=== PATIENT | male | born 1945 | race Hispanic/Latino ===

== ENCOUNTER 2018-03-23 07:37 | Outpatient (CLI) | payer MEDICARE ==
--- NOTE | 2018-03-23 09:54 | MRI ---
MRI LUMBAR SPINE WITHOUT CONTRAST: Date: 03-23-18 Comparison: 03-08-16 History: Back locked up three weeks ago. Pain with bilateral lower extremity radiculopathy. Technique: Multiplanar, multisequence MR imaging of the lumbar spine provided without contrast. FINDINGS: The sagittal STIR imaging demonstrates no focal area of osseous marrow edema. Assuming five lumbar ty pe vertebral bodies, conus medullaris terminates at the T12-L1 level. There is no anterolisthesis or retrolisthesis seen within the lumbar spine. T12-L1: Mild bilateral facet hypertrophy. Intervertebral disc height and signal intensity within norm al limits with no significant central canal or neural foraminal stenosis. L1-2: Mild bilateral facet hypertrophy. Mild anterior osteophyte formation. No significant central ca nal or neural foraminal stenosis. L2-3: Intervertebral disc height and signal intensity within normal limits. Mild bilateral facet hype rtrophy with no significant central canal or neural foraminal stenosis. L3-4: Bilateral facet hypertrophy. No significant central canal stenosis. There is mild left neural f oraminal stenosis. No significant right neural foraminal stenosis. L4-5: Bilateral facet hypertrophy. Mild disc bulge. Bilateral facet hypertrophy is present. There is no significant central canal stenosis. Moderate/severe bilateral neural foraminal stenosis noted, rig ht greater than left. L5-S1: There is disc space narrowing and disc desiccation with vacuum disc formation and mild disc bu lge. Small superimposed central disc protrusion. No significant central canal stenosis. Mild right an d moderate left neural foraminal stenosis. Imaged retroperitoneal structures are grossly unremarkable. When compared to the prior examination, n eural foraminal stenosis has not significantly changed. IMPRESSION: Relatively stable degenerative changes, including bilateral neural foraminal stenosis at L4-5 and L5- S1. POS: [facility]
== END 2018-03-23 07:38 | disposition home or self-care (01) ==
LOC: TBSIIMAG 07:37
PROVIDERS: ATTEND Family Medicine
DX: M47.26 Other spondylosis with radiculopathy, lumbar region (principal); M99.83 Other biomechanical lesions of lumbar region; M99.84 Other biomechanical lesions of sacral region
CPT/HCPCS: 72148

== ENCOUNTER 2018-03-27 08:50 | Outpatient (CLI) | payer MEDICARE ==
[2018-03-27] MEDS ORDERED: Gadobenate Dimeglumine 529 MG/1 ML (20ML VIAL) ONE (10:02)
--- NOTE | 2018-03-27 13:18 | MRI ---
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 TECHNIQUE: multisequence MRI of the thoracic spine obtained in sagittal and axial planes, pre and post IV inject ion of 17 mL of MultiHance Gadolinium-based contrast agent. COMPARISON: none FINDINGS: There is no intramedullary signal abnormality (no cord edema or myelomalacia), and no intramedullary neoplastic mass or other abnormal enhancement. No syringohydromyelia. No extrinsic impingement on t he thoracic spinal cord. Thoracic spinal cord size is normal. No extramedullary-intradural, extradu ral, or perivertebral space mass or abnormal enhancement. There is a mild lateral curvature of the T-spine. There are discogenic degenerative changes, asymmet rically on the left side, at T8-T9, with disk space narrowing and modic type I endplate marrow edema. Otherwise, there is no major bone marrow signal abnormality elsewhere. The vertebral body heights are maintained. No high grade central spinal canal stenosis, high grade neural foraminal stenosis, o r nerve root impingement, at any level. IMPRESSION: 1. No abnormality of the thoracic spinal cord. 2. Asymmetrical left-sided discogenic degenerative changes at T8-T9. 3. Mild lateral curvature. POS: [facility]
--- NOTE | 2018-03-27 13:19 | MRI ---
MRI OF CERVICAL SPINE WITH AND WITHOUT CONTRAST: Multiplanar, multisequential imaging cervical spine obtained. Postcontrast images obtained with admi nistration of 17 cc MultiHance IV. INDICATION: Transverse myelitis. COMPARISON: Comparison is made to MRI of the cervical spine dated 03/08/16. FINDINGS: The cervical vertebrae maintain normal height and alignment. There are mild degenerative changes pre sent. Mild loss of disk space at C6-7. Posterior spondylosis at C3-4, C4-5, C5-6, and C6-7. No dis k protrusion or significant disk bulge. High signal in the left facet joint at C5-6 is noted and the re is mild enhancement at this site. This may represent mild inflammatory change. Edema at this lev el was also described on the prior exam. No other abnormal enhancement. The cervical cord is unrema rkable and exhibits normal signal. No evidence of myelopathy. IMPRESSION: Mild spondylosis in the midcervical spine appears stable from the exam of 2016. Mild edema and enhan cement in the left facet at C5-6 is noted as described above. POS: [facility]
--- NOTE | 2018-03-27 14:03 | MRI ---
MRI LUMBAR SPINE WITH AND WITHOUT CONTRAST: Multiplanar, multisequential imaging lumbar spine obtained. Postcontrast images obtained with admini stration of 17 cc MultiHance IV. INDICATION: Transverse myelitis. COMPARISON: MRI lumbar spine 03/08/16. FINDINGS: Lumbar vertebrae maintain normal height and alignment. Loss of disk space at L5-S1 with mild degener ative disk end plate changes at L5-S1 appears stable from 2016. Mild diffuse disk bulge seen at L3-4 more pronounced to the left with facet hypertrophy resulting in mild central canal stenosis. At L4-5, broad-based disk bulge flattens the thecal sac associated with facet hypertrophy resulting i n mild central canal stenosis. There is right foraminal stenosis at this level due to asymmetric dis k-osteophyte complex projecting to the right and impinging on the exiting right L4 nerve root. Mild central canal stenosis, unchanged from the prior exam. At L5-S1, broad-based bulge. Mild bilateral foraminal stenosis due to diffuse disk bulge and facet h ypertrophy, stable from prior exam. The conus is normally positioned and the lower cord and conus show normal signal with no evidence of myelopathy. There is no abnormal enhancement. IMPRESSION: Disk bulge at L3-4, L4-5, and L5-S1 as described above. The visualized spinal cord and conus appear unremarkable. POS: [facility]
== END 2018-03-27 08:51 | disposition home or self-care (01) ==
LOC: MRI 08:50
PROVIDERS: ATTEND Family Medicine
DX: G37.3 Acute transverse myelitis in demyelinating disease of central nervous system (principal); M51.37 Other intervertebral disc degeneration, lumbosacral region; M47.892 Other spondylosis, cervical region; M47.894 Other spondylosis, thoracic region; M43.9 Deforming dorsopathy, unspecified
CPT/HCPCS: 72156; 72157; 72158; A9579

== ENCOUNTER 2019-08-13 14:11 | Outpatient (CLI) | payer MEDICARE ==
--- NOTE | 2019-08-13 15:32 | ULT ---
FOCUSED ULTRASOUND OF THE LEFT BREAST 08/13/19 HISTORY: Pain and sensitivity in the retroareolar region on the left. FINDINGS: Mammographic assessment demonstrates findings consistent with gynecomastia. Sonographic assessment al so demonstrates evidence of gynecomastia, with hypoechoic soft tissue abutting the posterior aspect o f the nipple. There is no mass lesion or abnormal shadowing. IMPRESSION: BIRADS 2: Benign Finding(s) Routine annual screening mammography (for women over age 40). Sonographic evidence of gynecomastia. POS: [facility]
--- NOTE | 2019-08-13 16:14 | MMO ---
Bilateral MAMMO Bilat Diag [facility]. CLINICAL HISTORY: Patient is 74 years old and is seen for diagnostic exam. The patient has the following family history of breast cancer: maternal aunt. The patient has no personal history of cancer. VIEWS: The views performed were: bilateral craniocaudal with tomosynthesis; bilateral mediolateral oblique with tomosynthesis; and bilateral mediolateral with tomosynthesis. FILMS COMPARED: The present examination has been compared to a prior imaging study performed at [facility] on 08/13/2019. This study has been interpreted with the assistance of computer-aided detection. MAMMOGRAM FINDINGS: There are scattered fibroglandular densities. There are focal asymmetries seen in the sub-areolar region of both breasts. Bilateral gynecomastia noted, left greater than right. There are no suspicious masses, suspicious calcifications, or new areas of architectural distortion. IMPRESSION: THERE IS NO MAMMOGRAPHIC EVIDENCE OF MALIGNANCY. THE RESULTS OF THIS EXAM WERE SENT TO THE PATIENT. ACR BI-RADS Category 2 - Benign finding MAMMOGRAPHY NOTE: 1. A negative mammogram report should not delay a biopsy if a dominant of clinically suspicious mass is present. 2. Approximately 10% to 15% of breast cancers are not detected by mammography. 3. Adenosis and dense breasts may obscure an underlying neoplasm. Reported by: GUI HUMMEL MD Electonically Signed: [id number]
== END 2019-08-13 14:12 | disposition home or self-care (01) ==
LOC: BICMAMMO 14:11
PROVIDERS: ATTEND Family Medicine
DX: N63.20 Unspecified lump in the left breast, unspecified quadrant (principal); N62 Hypertrophy of breast
CPT/HCPCS: 76642; 77066; G0279

== ENCOUNTER 2024-03-30 09:53 | Outpatient (CLI) | payer MEDICARE | END 2024-03-30 09:54 | disposition home or self-care (01) | LOC: SCSMRI 09:53 | PROVIDERS: ATTEND Family Medicine | DX: M47.26 Other spondylosis with radiculopathy, lumbar region (principal); M47.817 Spondylosis without myelopathy or radiculopathy, lumbosacral region; M48.061 Spinal stenosis, lumbar region without neurogenic claudication; M51.16 Intervertebral disc disorders with radiculopathy, lumbar region; M51.37 Other intervertebral disc degeneration, lumbosacral region; M48.07 Spinal stenosis, lumbosacral region | CPT/HCPCS: 72148 ==